=== PATIENT | male | born 1975 | race Hispanic/Latino ===

== ENCOUNTER 2025-05-28 10:23 | Emergency (ER) | payer OTHER, BC ==
[~2025-05-28] VITALS: Ht 167.6 cm; Wt 88.9 kg
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
[2025-05-28 11:15] VITALS: BP 124/70; PULSE 66; RESP 16; TEMP 98.1; O2SAT 98
[2025-05-28] MEDS ORDERED: IBUP-2077 PO (11:52)
[2025-05-28] MEDS: LIDOCAINE HCL 1% 20 ML VIAL INJ SCH (11:57)
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
--- NOTE | 2025-05-28 12:08 | HMCIMG ---
EXAM: CR Left Hand, 3 View. CLINICAL HISTORY: RE-EVALUATE LEFT 4TH FINGER POSTREDUCTION COMPARISON: Radiographs from earlier today FINDINGS: The fourth proximal interphalangeal joint is now anatomically aligned. Subtle nondisplaced fracture at the volar base of the fourth middle phalanx. Fourth finger soft tissue edema. IMPRESSION: 1. Anatomically aligned fourth proximal interphalangeal joint status post reduction with nondisplaced fracture at the volar base of the fourth middle phalanx. 2. Fourth finger soft tissue edema. /[place]
== END 2025-05-28 12:04 | disposition home or self-care (01) ==
LOC: EDH 10:23
DX: S63.285A Dislocation of proximal interphalangeal joint of left ring finger, initial encounter (principal); I10 Essential (primary) hypertension; W21.01XA Struck by football, initial encounter; Y93.89 Activity, other specified; Y92.89 Other specified places as the place of occurrence of the external cause; Y99.8 Other external cause status
CPT/HCPCS: 26770; 73120; 73130; 99284